=== PATIENT | male | born 1975 | race Caucasian/White ===

== ENCOUNTER → 2016-07-21 | Day surgery (SDC) | payer OTHER ==
[~2016-07-21] VITALS: Ht 177.8 cm; Wt 81.6 kg
[~2016-07-21] MED LIST: Dexamethasone Inj PF*Surgery use* 10 MG/ML VIAL IV ONE; NKM
[2016-07-21 09:33] VITALS: BP 147/80
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
--- NOTE | 2016-07-21 10:10 | Pre-Procedure Note/Attestation ---
Pre-Procedure Note/Attestation Complete Prior to Procedure Planned Procedure: bilateral Procedure Narrative: L5-S1 transforaminal lumbar epidural steroid injection. Indications for Procedure Pre-Operative Diagnosis: lumbar disc displacement with radiculopathy Attestation I attest that I discussed the nature of the procedure; its benefits; risks and complications; and alternatives (and the risks and benefits of such alternatives ), prior to the procedure, with the patient (or the patient's legal veterans service representative). I attest that, if there was a reasonable possibility of needing a blood transfusion, the patient (or the patient's legal veterans service representative) was given the [facility] of Health Services standardized written summary, pursuant to the Dada Romain Blood Safety Act ([place] Health and Safety Code # 1645, as amended). I attest that I re-evaluated the patient just prior to the surgery and that there has been no change in the patient's H&P, except as documented below: NAILA HERNANDEZ M.D. Jul 21, 2016 10:10
--- NOTE | 2016-07-21 10:33 | Brief Operative Note ---
Immediate Post Operative Note Operative Note Chief Complaint: lower back pain and bilateral leg pain Pre-op Diagnosis: lumbar disc displacement with radiculopathy Procedure: Bilateral L5-S1 transforaminal lumbar epidural steroid injection under fluoroscopic guidance. Post-op Diagnosis: lumbar disc displacement with radiculopathy Post-op Diagnosis: same as pre-op Findings: consistent w/pre-op dx studies Surgeon: Naila Aguirre MD Cad Programmer: None Additional Surgeons: None Anesthesiologist: Arleen Anesthesia: local Specimen: none Complications: none Condition: stable Fluids: None Estimated Blood Loss: none Drains: none Packing: None Tourniquet time: 0 - min Implant(s) used?: NAILA Bloom M.D. Jul 21, 2016 10:33
--- NOTE | 2016-07-21 10:36 | Discharge Summary ---
Discharge Summary Hospital Course Date of Admission 07/21/2016 Date of Discharge 07/21/2016 Admitting Diagnosis lumbar disc displacement with radiculopathy Reason for Hospitalization: short stay HPI Shahriar Byrnes is a 41 year old male who was admitted on for Back Pain Consultations none Procedures Bilateral L5-S1 transforaminal lumbar epidural steroid injection under fluoroscopic guidance. Hospital Course short stay Discharge Condition Upon Discharge: stable Discharge Disposition Patient was discharged to home. Discharge Diagnoses: (1) Lumbar disc herniation with radiculopathy Discharge Instructions Discharge Instructions Follow up with: Naila Hernandez MD Diet: regular Activity: okay to shower For Surgical Patients Contact your physician for: bleeding, pain, tenderness, redness, swelling, yellowish discharge in the op. site NAILA HERNANDEZ M.D. Jul 21, 2016 10:36
[2016-07-21 10:37] VITALS: BP 114/88
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
== END | disposition home or self-care (01) ==
LOC: SUR 09:04 → RAD 09:04
DX: M51.16 Intervertebral disc disorders with radiculopathy, lumbar region (principal)
CPT/HCPCS: 64483; 64484

== ENCOUNTER 2017-05-10 12:47 | Emergency (ER) | payer OTHER ==
[~2017-05-10] VITALS: Ht 177.8 cm; Wt 88.9 kg
[~2017-05-10 12:47] MED LIST changes: -Dexamethasone Inj PF*Surgery use* 10 MG/ML VIAL IV ONE
[2017-05-10 13:00] VITALS: BP 162/97
--- NOTE | 2017-05-10 13:13 | Emergency Room Report ---
History of Present Illness General Chief Complaint: Lower Back Pain or Injury Source: Patient Present Illness HPI Patient is a 42-year-old man with a history of chronic back pain who presents today with complaints of back pain. He states the pain is worse on the left side and radiates down his left leg. He and his been taking Motrin with some relief. He denies any changes in Mejia bladder habits, numbness, tingling, loss of sensation. In he denies saddle anesthesia. He has no significant medical problems and denies tobacco, alcohol or drug use. Allergies: Coded Allergies: NO KNOWN ALLERGIES (Verified Allergy, Unknown, 07/21/16) Patient History Reviewed Nursing Documentation: PMH: Agreed, PSxH: Agreed Nursing Documentation-PMH Past Medical History: No Stated History Hx Cardiac Problems: No Hx Cancer: No Hx Gastrointestinal Problems: No Hx Neurological Problems: No Review of Systems Musculoskeletal: Reports: back pain All Other Systems: negative except mentioned in HPI Physical Exam Vital Signs Date Time Temp Pulse Resp B/P (MAP) Pulse Ox O2 Delivery O2 Flow Rate FiO2 05/10/17 12:54 97.3 77 18 162/97 98 Room Air Sp02 EP Interpretation: reviewed, normal General Appearance: no apparent distress, alert, GCS 15, non-toxic Head: normocephalic, atraumatic Eyes: bilateral eye normal inspection, bilateral eye PERRL ENT: hearing grossly normal, normal pharynx, no angioedema, normal voice Neck: full range of motion, supple/symm/no masses Respiratory: chest non-tender, lungs clear, normal breath sounds, speaking full sentences Cardiovascular #1: regular rate, rhythm, no edema Cardiovascular #2: 2+ carotid (R), 2+ carotid (L), 2+ radial (R), 2+ radial (L) , 2+ dorsalis pedis (R), 2+ dorsalis pedis (L) Gastrointestinal: normal bowel sounds, non tender, soft, non-distended, no guarding, no rebound Rectal: deferred Genitourinary: normal inspection, no CVA tenderness Musculoskeletal: back normal, gait/station normal, normal range of motion, non- tender, other - no midline tenderness, TTP over the musuclar areas of the low back Neurologic: alert, oriented x3, responsive, motor strength/tone normal, sensory intact, speech normal Psychiatric: judgement/insight normal, memory normal, mood/affect normal, no suicidal/homicidal ideation Reflexes: 3+ bicep (R), 3+ bicep (L), 3+ tricep (R), 3+ tricep (L), 3+ knee (R) , 3+ knee (L) Skin: normal color, no rash, warm/dry, well hydrated, other - no overlying skin changes Lymphatic: no adenopathy Medical Decision Making PA Attestation Supervising physician is Dr. Membreno Diagnostic Impression: Primary Impression: Left sided sciatica ER Course Low index of suspicion for cauda equina as the patient has no neurologic involvement. Patient has chronic back pain and symptoms consistent with left- sided sciatica. He patient's given Decadron Toradol and ED with improvement of symptoms on reevaluation. Patient is discharged home with Toradol and instructed to followup with PCP for further evaluation and management. Patient understands and is agreeable to plan. Last Vital Signs Date Time Temp Pulse Resp B/P (MAP) Pulse Ox O2 Delivery O2 Flow Rate FiO2 05/10/17 12:54 97.3 77 18 162/97 98 Room Air Status: improved Condition: Stable Scripts Tramadol Hcl (ULTRAM*) 50 Mg Tablet 50 MG ORAL Q4H, #30 TAB 0 Refills Prov: Deepali Rodriguez 05/10/17 Patient Instructions: Low Back Sprain With Rehab-Sports[facility], Back Pain, Adult Deepali Rodriguez May 10, 2017 13:13
[2017-05-10] MEDS ORDERED: Dexamethasone 20mg/5ml IM ONE (13:15)
[2017-05-10] MEDS ORDERED: Ketorolac 60mg Inj IM ONE (13:15)
[2017-05-10] MEDS ORDERED: ULTRAM50 MG ORAL (13:25)
[2017-05-10 14:10] VITALS: BP 158/89
== END 2017-05-10 14:15 | disposition home or self-care (01) ==
LOC: EMR 13:24
DX: M54.42 Lumbago with sciatica, left side (principal)
CPT/HCPCS: 96372; 99283; J1100

== ENCOUNTER 2017-06-08 06:58 | Inpatient (IN) | payer OTHER ==
[2017-06-08] VITALS (18 sets, daily range): BP systolic 113–153; BP diastolic 51–99
[~2017-06-08] VITALS: Ht 177.8 cm; Wt 86.2 kg
[~2017-06-08 06:58] MED LIST changes: +ULTRAM50 MG ORAL
[2017-06-08] MEDS ORDERED: ceFAZolin sod 2 GM in D5W 110 ML IVPB ONE (07:00)
--- NOTE | 2017-06-08 07:20 | Pre-Procedure Note/Attestation ---
Pre-Procedure Note/Attestation Complete Prior to Procedure Planned Procedure: not applicable Procedure Narrative: Cervical 56 Artificial disc replacement, Cervical 67 Anterior cervical discectomy and fusion Indications for Procedure Pre-Operative Diagnosis: Herniation C56,67 Attestation I attest that I discussed the nature of the procedure; its benefits; risks and complications; and alternatives (and the risks and benefits of such alternatives ), prior to the procedure, with the patient (or the patient's legal assistance representative). I attest that, if there was a reasonable possibility of needing a blood transfusion, the patient (or the patient's legal assistance representative) was given the [facility] of [facility] Services standardized written summary, pursuant to the Dada Edroy Blood Safety Act ([place] Health and Safety Code # 1645, as amended). I attest that I re-evaluated the patient just prior to the surgery and that there has been no change in the patient's H&P, except as documented below: MIKE ROCK Jun 08, 2017 07:20
--- NOTE | 2017-06-08 07:21 | Brief Operative Note ---
Immediate Post Operative Note Operative Note Chief Complaint: neck pain and radiculopathy Pre-op Diagnosis: Herniation C56,67 Procedure: Cervical 56 Artificial disc replacement, Cervical 67 Anterior cervical discectomy and fusion Post-op Diagnosis: same Post-op Diagnosis: same as pre-op Findings: consistent w/pre-op dx studies Surgeon: Evelina Lawn Service Manager: Everette Anesthesiologist: YEE Anesthesia: general Specimen: none Complications: none Condition: stable Estimated Blood Loss: minimal Drains: none Implant(s) used?: Yes - Prodisc C sz 5, Peek nuvasive sz 6 , osteocell MIKE ROCK Jun 08, 2017 07:21
[2017-06-08] MEDS ORDERED: Thrombin 5000 units TOPIC ONE (09:45)
[2017-06-08] MEDS ORDERED: Bacitracin 50000 Units Vial ONE (09:46)
[2017-06-08] MEDS ORDERED: Vancomycin 1gm inj IVPB ONE (09:46)
[2017-06-08] MEDS ORDERED: Bupivacaine 0.5% Inj 30 ml vial INJ ONE (09:47)
[2017-06-08] MEDS ORDERED: Surgicel 4in x 8in TOPIC ONE (09:49)
[2017-06-08] MEDS ORDERED: Glycopyrrolate 0.2mg/ml 1ml Vial ONE (10:30)
[2017-06-08] MEDS ORDERED: Nimbex 2mg/ml Inj 10ML IVP ONE (10:30)
[2017-06-08] MEDS ORDERED: NS Irrig 1000ml ONE (10:30)
[2017-06-08] MEDS ORDERED: fentaNYL 100 mcg/2 mL IV ONE (10:30)
[2017-06-08] MEDS ORDERED: Neostigmine 1mg/ml 10ml Inj ONE (10:30)
[2017-06-08] MEDS ORDERED: LR 1000ml ONE (10:30)
[2017-06-08] MEDS ORDERED: Sterile Water Irrig 1000ml IRRIG ONE (10:30)
[2017-06-08] MEDS ORDERED: Succinylcholine 20mg/ml 10ml vial ONE (10:30)
[2017-06-08] MEDS ORDERED: Ketorolac 30mg Inj ONE (10:30)
[2017-06-08] MEDS ORDERED: Propofol 1,000mg/ 100ml btl IV ONE (10:30)
[2017-06-08] MEDS ORDERED: Midazolam 2mg/2ml Inj ONE (10:30)
[2017-06-08] MEDS ORDERED: Morphine Sulfate 10mg/ml Inj ONE (10:30)
[2017-06-08] MEDS ORDERED: LR 1000ml 1,000 ML IVLG SCH (11:47)
--- NOTE | 2017-06-08 11:47 | Anethesia Preoperative Eval ---
Anesthesia Pre-op PMH/ROS General Date of Evaluation: Jun 08, 2017 Time of Evaluation: 10:15 Anesthesiologist: Mukesh ASA Score: ASA 2 Mallampati Score Class I : Soft palate, uvula, fauces, pillars visible Class II: Soft palate, uvula, fauces visible Class III: Soft palate, base of uvula visible Class IV: Only hard plate visible Mallampati Classification: Class II Surgeon: Luciano Diagnosis: Cervical radiculopathy Surgical Procedure: ACDF C5-C7 Anesthesia History: none Family History: no anesthesia problems Allergies: Coded Allergies: NO KNOWN ALLERGIES (Verified Allergy, Unknown, 06/08/17) Medications: see eMAR Past Medical History Cardiovascular: Denies: HTN, CAD, NE, valve dz, arrhythmia, other Pulmonary: Denies: asthma, COPD, NEENA, other Gastrointestinal/Genitourinary: Reports: GERD - mild, Denies: CRI, ESRD, other Neurologic/Psychiatric: Denies: dementia, CVA, depression/anxiety, TIA, other Endocrine: Denies: DM, hypothyroidism, steroids, other HEENT: Denies: cataract (L), cataract (R), glaucoma, PICAYUNE (L), PICAYUNE (R), other Hematology/Immune: Denies: anemia, DVT, bleeding disorder, other Musculoskeletal/Integumentary: Denies: OA, RA, DJD, DDD, edema, other PMH Narrative: as above PSxH Narrative: Appendectomy, septoplasty Anesthesia Pre-op Phys. Exam Physician Exam Last Vital Signs Date Time Temp Pulse Resp B/P (MAP) Pulse Ox O2 Delivery O2 Flow Rate FiO2 06/08/17 07:28 97.9 71 18 125/92 98 Room Air Constitutional: NAD Neurologic: CN 2-12 intact Cardiovascular: RRR, no M/R/G Respiratory: CTA Gastrointestinal: S/NT/ND Airway Exam Mallampati Score: Class II MO: full Neck: stiff ROM: full Teeth: intact Dentures: no upper, no lower Anesthesia Pre-op A/P Labs see chart Studies Pre-op Studies: EKG - NSR, CXR - WNL, echo - EF 60% Risk Assessment & Plan Assessment: ASA 2 Plan: GA with ETT neuromonitoring Status Change Before Surgery: No Pre-Antibiotics Drug: Ancef 2gr. Given Within 1 Hr of Incision: Yes Time Given: 10:57 BRYAN SANTOS M.D. Jun 08, 2017 11:47
[2017-06-08] MEDS ORDERED: DiphenhydrAMINE 50mg/ml Inj IVP PRN (12:00)
[2017-06-08] MEDS ORDERED: Hydromorphone 0.5mg/0.5ml inj IVP PRN ×2 (12:00→15:00)
[2017-06-08] MEDS ORDERED: Ketorolac 30mg Inj IV PRN (12:00)
[2017-06-08] MEDS ORDERED: Midazolam 2mg/2ml Inj IVP PRN (12:00)
[2017-06-08] MEDS ORDERED: Meperidine 50mg/ml Inj(FOR RIGORS ONLY) IV PRN (12:00)
--- NOTE | 2017-06-08 13:19 | Immediate Post-Op Evaluation ---
Immediate Post-Op Evalulation Immediate Post-Op Evalulation Procedure: ACDF C5-C6-C7 Date of Evaluation: Jun 08, 2017 Time of Evaluation: 13:17 IV Fluids: 1200 Blood Products: none Estimated Blood Loss: 50 Urinary Output: 150 Blood Pressure Systolic: 123 Blood Pressure Diastolic: 61 Pulse Rate: 77 Respiratory Rate: 20 O2 Sat by Pulse Oximetry: 99 Temperature (Fahrenheit): 98.1 Pain Score (1-10): 2 Nausea: No Vomiting: No Complications none Patient Status: reacts, patent, extubated, none Hydration Status: adequate BRYAN SANTOS M.D. Jun 08, 2017 13:18
[2017-06-08] MEDS ORDERED: Milk of Magnesia 30ml Ud ORAL PRN (15:00)
[2017-06-08] MEDS ORDERED: Hydromorphone 0.5mg/0.5ml inj SUBQ PRN (15:00)
[2017-06-08] MEDS ORDERED: Norco 5mg/325mg tab ORAL PRN (15:00)
[2017-06-08] MEDS ORDERED: Naloxone 0.4mg/ml Inj IVP PRN (15:00)
[2017-06-08] MEDS ORDERED: Norco 7.5mg/325mg tab ORAL PRN ×2 (15:00)
[2017-06-08] MEDS ORDERED: Metoclopramide 10mg/2ml Inj IVP PRN (15:00)
[2017-06-08] MEDS ORDERED: Chloraseptic Spray 20mL Bottle ORAL PRN (15:00)
--- NOTE | 2017-06-08 15:22 | Diagnostic Imaging Report ---
Indication: Bilateral upper extremity pain, intraoperative Technique: Digital intraoperative images Comparison: none Findings: Intraoperative images demonstrate surgical tool projecting at the anterior aspect of the C5-6 disc. Subsequent images document placement of a disc prosthesis at C5-6 and anterior fusion at C6-7. Impression: Intraoperative imaging, as described
[2017-06-08] MEDS: NS w/KCl 20mEq 1,000 ML IV SCH (16:14)
[2017-06-08] MEDS: Dexamethasone 4mg/ml vial IVP SCH (17:58)
[2017-06-08] MEDS: Docusate 100mg cap ORAL SCH (17:58)
[2017-06-08] MEDS: ceFAZolin sod 1 GM in D5W 55 ML IV SCH (18:14)
[2017-06-09] VITALS: BP 108/70
[2017-06-09] MEDS: Dexamethasone 4mg/ml vial IVP SCH ×3 (00:05→12:31)
[2017-06-09] MEDS: ceFAZolin sod 1 GM in D5W 55 ML IV SCH ×2 (01:36→10:55)
[2017-06-09] MEDS: NS w/KCl 20mEq 1,000 ML IV SCH ×2 (01:36→12:31)
[2017-06-09 08:00] VITALS: BP 143/90
[2017-06-09] MEDS: Docusate 100mg cap ORAL SCH (08:54)
[2017-06-09 12:00] VITALS: BP 125/81
[2017-06-09] MEDS ORDERED: Tubing IV Secondary IV ONE (13:29)
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
--- NOTE | 2017-06-14 13:04 | Discharge Summary ---
Discharge Summary Hospital Course Date of Admission Jun 08, 2017 at 06:58 Date of Discharge Jun 09, 2017 at 13:30 Admitting Diagnosis cervical herniated disc Reason for Hospitalization: elective surgery HPI Shahriar Byrnes is a 42 year old male who was admitted on Jun 08, 2017 at 06: 58 for Cervical Herniated Disc and elective surgery Procedures s/p 06/08/[address]oyt 1. Anterior cervical discectomy and artificial disc replacement of C5-C6 using a Synthes ProDisc-C 5 height. 2. C6-C7 anterior cervical discectomy and fusion using Nuvasive Interlock-C cage with 1 mL Osteocel and a total of three 14-mm screws. 3. Use of intraoperative microscope. 4. Motor evoked potential monitoring. 5. Somatosensory evoked potential monitoring. 6. Supervision and interpretation of fluoroscopy. Hospital Course s/p surgery course of recovery uneventful neurovascular intact pain management addressed, pain controlled dressing C/D/I tolerated soft diet, a/emetic prn, lozenges prn for comfort worked with PT, ambulated voided freely stable fro dc home and f/up as outpt with surgeon as advised FINAL DIAGNOSES 1. Intractable neck pain. 2. Radiculopathy. 3. Herniation, C5-C6, C6-C7. 4. Neural foraminal stenosis, C5-C6, C6-C7. 5. Stenosis. 6. s/p ACDF C5-C6-C7 Discharge Condition Upon Discharge: stable Discharge Disposition Patient was discharged to Home (01) Discharge Diagnoses: Discharge Instructions Discharge Instructions Special Instructions I have been assigned to complete a D/C Summary on this account. I was not involved in the patient management Ángela Renteria NP (Vanchtein) Jun 14, 2017 13:04
== END 2017-06-09 13:30 | disposition home or self-care (01) | DRG 473 ==
LOC: SDSOVERFLO 06:58 → 3E 16:43
PROC: 4A11X4G Monitoring of Peripheral Nervous Electrical Activity, Intraoperative, External Approach (ICD-10-PCS; principal; 2017-06-08 09:30)
PROC: 0RG10A0 Fusion of Cervical Vertebral Joint with Interbody Fusion Device, Anterior Approach, Anterior Column, Open Approach (ICD-10-PCS; principal; 2017-06-08 09:30)
PROC: 0RR30JZ Replacement of Cervical Vertebral Disc with Synthetic Substitute, Open Approach (ICD-10-PCS; principal; 2017-06-08 09:30)
DX: M50.123 Cervical disc disorder at C6-C7 level with radiculopathy (principal); M48.02 Spinal stenosis, cervical region
CPT/HCPCS: 36415; 72040; 76001; 86850; 86900; 86901; 87081; 94003; 94150; J2250; J2405; J2710

== ENCOUNTER 2018-05-15 07:04 | Inpatient (IN) | payer OTHER ==
--- NOTE | 2018-05-14 11:21 | Pre-Procedure Note/Attestation ---
Pre-Procedure Note/Attestation Complete Prior to Procedure Planned Procedure: not applicable Procedure Narrative: Stage 1 : Anterior lumbar interbody fusion of Lumbar 5-S1 with bone morphogenetic protein and allograft Stage 2: Left sided Microdiscectomy of Lumbar 4-5, and Fong laminectomy pedicle screw fixation of Lumbar 5-S1 Indications for Procedure Pre-Operative Diagnosis: Left sided herniation of L45 and L5S1 herniation Attestation I attest that I discussed the nature of the procedure; its benefits; risks and complications; and alternatives (and the risks and benefits of such alternatives ), prior to the procedure, with the patient (or the patient's legal cash applications representative). I attest that, if there was a reasonable possibility of needing a blood transfusion, the patient (or the patient's legal cash applications representative) was given the [place] Department [employer] standardized written summary, pursuant to the [place] Blood Safety Act ([place] Health and Safety Code # 1645, as amended). I attest that I re-evaluated the patient just prior to the surgery and that there has been no change in the patient's H&P, except as documented below: Daniel Hoyt MD May 14, 2018 11:21
--- NOTE | 2018-05-14 11:23 | Brief Operative Note ---
Immediate Post Operative Note Operative Note Chief Complaint: intractable back and leg pain Pre-op Diagnosis: Left sided herniation of L45 and L5S1 herniation Procedure: Stage 1 : Anterior lumbar interbody fusion of Lumbar 5-S1 with bone morphogenetic protein and allograft Stage 2: Left sided Microdiscectomy of Lumbar 4-5, and Fong laminectomy pedicle screw fixation of Lumbar 5-S1 Post-op Diagnosis: same as pre-op Findings: consistent w/pre-op dx studies Surgeon: Evelina Chemical Operator: Marjorie Additional Surgeons: Everette Anesthesia: general Specimen: none Complications: none Condition: stable Fluids: IVF Estimated Blood Loss: minimal Implant(s) used?: Yes - Nuvasive brelie, synthes screws x4 Daniel Hoyt MD May 14, 2018 11:23
[~2018-05-15] VITALS: Ht 177.8 cm; Wt 87.7 kg
[2018-05-15] VITALS (11 sets, daily range): BP systolic 106–125; BP diastolic 65–78
[~2018-05-15 07:04] MED LIST changes: +Chloraseptic Spray 20mL Bottle ORAL PRN; +Dexamethasone 4mg/ml vial IVP SCH; +Docusate 100mg cap ORAL SCH; +HYDROmorphone 1mg/ml Carpuject IVP PRN; +Milk of Magnesia 30ml Ud ORAL PRN; +Morphine Sulfate 2mg/ml Inj IV PRN; +Morphine Sulfate 4mg/ml Inj (IV/IM USE ONLY) IV PRN; +NS w/KCl 20mEq 1,000 ML IV SCH; +Naloxone 0.4mg/ml Inj IVP PRN; +Norco 5mg/325mg tab ORAL PRN; +ceFAZolin sod 2 GM in D5W 110 ML IV ONE
[2018-05-15] MEDS ORDERED: Gelfoam Absorbable 1gm powder pkt TOPIC ONE (08:00)
[2018-05-15] MEDS ORDERED: Propofol 1,000mg/ 100ml btl IV ONE (08:00)
[2018-05-15] MEDS ORDERED: Midazolam 2mg/2ml Inj ONE (08:45)
[2018-05-15] MEDS ORDERED: fentaNYL 100 mcg/2 mL IV ONE ×2 (08:45→15:44)
[2018-05-15] MEDS ORDERED: Vancomycin 1gm inj IVPB ONE (09:51)
[2018-05-15] MEDS ORDERED: Gelfoam Size TOPIC ONE ×2 (09:51→09:52)
[2018-05-15] MEDS ORDERED: Thrombin 5000 units TOPIC ONE ×2 (09:51→11:31)
[2018-05-15] MEDS ORDERED: Bupivacaine w/Epi 0.5% 30ml Vial INJ ONE ×2 (09:52→10:32)
[2018-05-15] MEDS ORDERED: Bacitracin 50000 Units Vial ONE (09:52)
--- NOTE | 2018-05-15 10:15 | Consultation ---
DATE OF CONSULTATION: 05/15/2018 VASCULAR SURGERY CONSULTATION CONSULTING PHYSICIAN: Chito Amador M.D. HISTORY OF PRESENT ILLNESS: The patient is a 43-year-old male, who was admitted to undergo anterior lumbar interbody fusion of L5-S1 as determined by his spine surgeon, Dr. Daniel Hoyt. Typically, the patient would have received at his home my separate informed consent form, but I was called to perform this approach late yesterday afternoon and so again as my usual protocol, I was unable to telephone the patient to discuss the procedure in my typical protocol. However, again as my usual protocol, the patient was seen in the preoperative holding area where he was given my separate informed consent form, which introduced me and explained my role in the approach for the anterior lumbar spine surgery. It also outlined the possible risks and complications including, but not limited to hemorrhage, need for blood transfusions, retrograde ejaculation, wound infection, bowel or ureter injury, arterial or venous injury or thrombosis, and the remote chance of , etc. The patient reviewed the form and any questions were answered. He was shown the site of the incision. He had palpable bilateral strong posterior tibial and then dorsalis pedis pulses. He was 5 feet 10 inches tall, weighing approximately 194 pounds, giving him a BMI of 28. His hematocrit was 42 with a platelet count of 212,000. His INR was 1.08 with a PTT of 31 seconds. That consent was signed with a nurse witnessed and signature as well and then placed into the chart. He fully understood and wished to proceed. There were no contraindications and we would proceed with the proposed operation. Chito Amador M.D. DR: TAMAR JOB#: [id number] CC:
[2018-05-15] MEDS ORDERED: Zemuron 50mg/5ml Inj IV ONE ×2 (10:32→11:25)
[2018-05-15] MEDS ORDERED: Heparin 5000 units/ml inj ONE (10:32)
[2018-05-15] MEDS ORDERED: NS Irrig 1000ml IRRIG ONE (11:30)
--- NOTE | 2018-05-15 11:35 | Anethesia Preoperative Eval ---
Anesthesia Pre-op PMH/ROS General Date of Evaluation: May 15, 2018 Time of Evaluation: 10:20 Anesthesiologist: Mukesh ASA Score: ASA 2 Mallampati Score Class I : Soft palate, uvula, fauces, pillars visible Class II: Soft palate, uvula, fauces visible Class III: Soft palate, base of uvula visible Class IV: Only hard plate visible Mallampati Classification: Class II Surgeon: Evelina Diagnosis: Lumbar radiculopathy Surgical Procedure: ALIF L5-S1, posterior interbody fusion Anesthesia History: none Family History: no anesthesia problems Allergies: Coded Allergies: NO KNOWN ALLERGIES (Verified Allergy, Unknown, 05/15/18) Patient NPO?: Yes NPO Date: May 14, 2018 NPO Time: 2100 Past Medical History Cardiovascular: Denies: HTN, CAD, CO, valve dz, arrhythmia, other Pulmonary: Denies: asthma, COPD, NEENA, other Gastrointestinal/Genitourinary: Reports: GERD - mild; Denies: CRI, ESRD, other Neurologic/Psychiatric: Reports: other - chronic pain; Denies: dementia, CVA, depression/anxiety, TIA Endocrine: Denies: DM, hypothyroidism, steroids, other HEENT: Denies: cataract (L), cataract (R), glaucoma, ASA'CARSARMIUT (L), ASA'CARSARMIUT (R), other Hematology/Immune: Denies: anemia, DVT, bleeding disorder, other Musculoskeletal/Integumentary: Denies: OA, RA, DJD, DDD, edema, other PMH Narrative: as above PSxH Narrative: ACDF Anesthesia Pre-op Phys. Exam Physician Exam Last Vital Signs Date Time Temp Pulse Resp B/P (MAP) Pulse Ox O2 Delivery O2 Flow Rate FiO2 05/15/18 07:39 98.0 65 18 110/67 (81) 98 05/15/18 07:35 Room Air Constitutional: NAD Neurologic: CN 2-12 intact Cardiovascular: RRR, no M/R/G Respiratory: CTA Gastrointestinal: S/NT/ND Airway Exam Mallampati Score: Class II MO: full Neck: flexible ROM: full Teeth: intact Dentures: no upper, no lower Anesthesia Pre-op A/P Labs see chart Studies Pre-op Studies: EKG - NSR Risk Assessment & Plan Assessment: ASA 2 Plan: GA with ETT neuromonitoring Status Change Before Surgery: No Pre-Antibiotics Drug: Ancef 2gr. Given Within 1 Hr of Incision: Yes Time Given: 11:08 Rod Mayorga MD May 15, 2018 11:35
[2018-05-15] MEDS ORDERED: LR 1000ml 1,000 ML IVLG SCH (11:36)
[2018-05-15] MEDS ORDERED: DiphenhydrAMINE 50mg/ml Inj IVP PRN ×2 (11:45→18:15)
[2018-05-15] MEDS ORDERED: Meperidine 50mg/ml Inj(FOR RIGORS ONLY) IV PRN ×2 (11:45→18:15)
[2018-05-15] MEDS ORDERED: fentaNYL 100 mcg/2 mL IV PRN ×2 (11:45→18:15)
[2018-05-15] MEDS ORDERED: Ketorolac 30mg Inj IV PRN ×2 (11:45→18:15)
[2018-05-15] MEDS ORDERED: Acetaminophen (Non formulary) 100 ML IV SCH (12:00)
[2018-05-15] MEDS ORDERED: Morphine Sulfate 10mg/ml Inj ONE (12:06)
[2018-05-15] MEDS ORDERED: Sodium Chloride 10ml vial INJ ONE (12:07)
[2018-05-15] MEDS ORDERED: Neostigmine 1mg/ml 10ml Inj ONE (12:07)
[2018-05-15] MEDS ORDERED: Ketorolac 30mg Inj ONE (12:07)
[2018-05-15] MEDS ORDERED: Glycopyrrolate 0.2mg/ml 1ml Vial ONE (12:07)
[2018-05-15] MEDS ORDERED: Propofol 200mg/20ml IV ONE ×2 (15:39→15:45)
--- NOTE | 2018-05-15 17:21 | Immediate Post-Op Evaluation ---
Immediate Post-Op Evalulation Immediate Post-Op Evalulation Procedure: Anterior and posterior L5-S1 interbody fusion with laminotomy and decompres Date of Evaluation: May 15, 2018 Time of Evaluation: 17:19 IV Fluids: 1800 Blood Products: none Estimated Blood Loss: 200 Urinary Output: 350 Blood Pressure Systolic: 106 Blood Pressure Diastolic: 68 Pulse Rate: 78 Respiratory Rate: 20 O2 Sat by Pulse Oximetry: 99 Temperature (Fahrenheit): 98.6 Pain Score (1-10): 1 Nausea: No Vomiting: No Complications none Patient Status: reacts, patent, extubated Hydration Status: adequate Rod Mayorga MD May 15, 2018 17:21
--- NOTE | 2018-05-15 18:45 | Operative Note - Dictated ---
DATE OF OPERATION: 05/15/2018 SURGEON: Chito Amador M.D. INDICATIONS FOR PROCEDURE: The patient is a 43-year-old male, who was admitted to undergo anterior lumbar interbody fusion at L5-S1 as determined by his spine surgeon, Dr. Daniel Hoyt. Typically, the patient received at his home my separate informed consent form, but I was scheduled to do this approach yesterday afternoon. Typically as my usual protocol, I would have telephoned the patient as well, however, again as my usual protocol, the patient was seen in the preoperative holding area where he was given my separate informed consent form, which introduced me and explained my role in the approach for the anterior lumbar spine surgery. It also outlined the possible risks and complications including but not limited to hemorrhage, need for blood transfusions, retrograde ejaculation, wound infection, bowel or ureter injury, arterial or venous injury or thrombosis, and the remote chance of , etc. The patient reviewed the consent and all questions were answered. He was shown the site of the incision. He had palpable stronger bilateral posterior tibial and also dorsalis pedis pulses. He was 5 feet 10 inches tall, weighing approximately 194 pounds giving him a BMI of 28. That consent was signed once again with a nurse witness and signature as well and then placed into the chart. He fully understood and wished to proceed. A preoperative vascular surgery consultation report was dictated. DESCRIPTION OF PROCEDURE: The patient was taken into the operating room and placed in supine position. Using an endotracheal tube, he was placed under general anesthesia without difficulty. His abdomen was prepped and draped in usual sterile manner. An appropriate time-out was obtained. A transverse incision was made in the left lower quadrant from the midline and carried down through the subcutaneous tissue down to the rectus fascia. Hemostasis was achieved using electrocautery. The rectus fascia was incised transversely and elevated off the anterior surface of the muscle for a distance of approximately 4 cm, both caudad and cephalad. This would allow for retraction of the rectus muscle laterally later in the case noted to obtain direct anterior-posterior approach to the anterior surface of the spine. The inferior epigastric vessels were identified and preserved. Laterally, the retroperitoneal space was entered down to the left psoas muscle. The left ureter was identified and protected as it was mobilized with the peritoneum more medially until the left iliac artery was identified. Deep self-retaining retractors such as the Richland and Bookwalter were utilized to hold the abdominal wall and peritoneal contents in place while further dissection was carried out. Careful blunt dissection was carried out below the bifurcation of the iliac vessels with several medial branches of the iliac vein were taken between hemoclips and transected. The middle sacral artery was taken between hemoclips and transected. Careful blunt dissection was carried out to preserve the sympathetic chains laterally as well as the parasympathetic plexus which lies anteriorly along the surface of the fifth lumbar vertebra. Further careful blunt dissection was utilized to expose the anterior surface of the multiple vertebral bodies and intervening disk space. Several retractor blades were now placed in all quadrants with the rectus muscle now retracted laterally, which allowed exposure and direct anterior-posterior approach to the anterior surface of the spine. A needle was inserted into the appropriate disk space and an x-ray was taken to verify the exposure. The spine surgeon then proceeded to perform diskectomy and fusion which would be dictated in a separate report by the spine surgeon, Dr. Hoyt. Antibiotic irrigation had been carried out. The retractor blades were removed. The integrity of the iliac vessels was then checked to make sure that there was no tear or thrombosis of the vein and that there was adequate flow through the artery with no evidence of spasm or thrombosis. A further check for hemostasis was made and the integrity of the ureter was verified. The peritoneum was allowed to return to its anatomical location and then the anterior rectus sheath approximated using continuous running suture of #1 Vicryl. The subcutaneous tissues were irrigated using dilute Betadine solution as well as antibiotic solution. Hemostasis noted to be achieved. Plastic closure repair of the abdominal wound was continued using 2-0 Vicryl followed by skin approximation using continuous subcuticular suture of 3-0 Monocryl. Steri-Strips were applied. Dry sterile gauze, OpSite dressings were applied. The sponge, pad, needle, and instrument counts reported as correct. ESTIMATED BLOOD LOSS: 50 mL. COMPLICATIONS: There were no complications during this part of the procedure. At completion of this part of the procedure, the patient had maintenance of his palpable bilateral posterior tibial and dorsalis pedis pulses and the pulse oximeter registered 100% on the left foot. The patient will remain in the operating room and undergo posterior instrumentation by the spine surgeon. Chito Amador M.D. DR: Kirstin JOB#: [id number] CC:
[2018-05-15] MEDS: NS w/KCl 20mEq 1,000 ML IV SCH (21:04)
[2018-05-15] MEDS: Dexamethasone 4mg/ml vial IVP SCH (21:05)
[2018-05-15] MEDS: Docusate 100mg cap ORAL SCH (21:05)
[2018-05-15] MEDS: Morphine Sulfate 4mg/ml Inj (IV/IM USE ONLY) IV PRN (21:10)
--- NOTE | 2018-05-15 21:30 | Operative Note - Dictated ---
DATE OF OPERATION: 05/15/2018 Stage 1 of 2. SURGEON: Daniel Hoyt M.D., Orthopaedic Spine Surgeon. EXPOSURE SURGEON: Chito Amador M.D. INTERNAL COMMUNICATIONS WRITER SURGEON: Aguilar Gaviria M.D. ANESTHESIA: General endotracheal anesthesia. PREOPERATIVE DIAGNOSES: 1. Intractable back pain. 2. Intractable leg pain. 3. Worsening radiculopathy. 4. Weakness. 5. Herniated nucleus pulposus, L5-S1 herniation. 6. Neural foraminal stenosis, L5-S1 herniation. POSTOPERATIVE DIAGNOSES: 1. Intractable back pain. 2. Intractable leg pain. 3. Worsening radiculopathy. 4. Weakness. 5. Herniated nucleus pulposus, L5-S1 herniation. 6. Neural foraminal stenosis, L5-S1 herniation. PROCEDURES PERFORMED: 1. Radical anterior lumbar intervertebral L5-S1 discectomy. 2. Anterior lumbar interbody fusion using NuVasive Brigade PEEK cage size #14 mm 8-degree and bone morphogenetic protein with Mariposa allograft bone. 3. Anterior lumbar plating and fixation at L5-S1 using #4 screws of 25 mm length each. 4. Anterior retroperitoneal exposure. 5. Supervision and interpretation of intraoperative fluoroscopy. 6. Supervision and interpretation of somatosensory-evoked potential and free running EMG monitoring. ESTIMATED BLOOD LOSS: 100 mL. COMPLICATIONS: None. INDICATIONS FOR THE PROCEDURE: The patient is a 43-year-old male who presents for intractable back pain and radiculopathy which is well documented in our clinical chart and records. We had a long discussion with Shahriar regarding definitive surgical treatment options. We had a long discussion with the patient regarding the risks, alternatives, and benefits of procedure. Our description of the risks included a discussion in person as well as a signed consent which detailed all pertinent risks and the procedure itself. Briefly, our discussion included but was not limited to infection, bleeding, pseudarthrosis, spinal cord injury, neurovascular injury, dural tear, CSF leak, neuropathy, paralysis, permanent weakness/drop foot, paresthesias, blindness, palsy, and weakness. The patient understood there may be a need for revision surgery or additional procedures. Approach-related complications including dysphonia, dysphagia, blindness, permanent vocal cord and neural injury, hematoma, swallowing and breathing difficulty; medical complications including liver, kidney, shock, and cardiopulmonary failure; anesthesia complications including , swelling, damage to the musculature, larynx , esophagus, trachea, blood vessels and muscles and lungs during this surgical procedure. Injury to deeper structures may be temporary or permanent. The patient understood these and elected to proceed. A written and verbal consent was given. We discussed the pros and cons of all the alternatives. We discussed the uncertainties associated with the decision. Afterwards I assessed the patients understanding and explored their preferences. All questions were answered and no guarantees were given. Medical clearance was obtained prior to surgery. INTRAOPERATIVE FINDINGS: The disc was collapsed and damaged with fissures and tears of the posterior longitudinal ligament through which herniated materials were encroaching on the neural elements. DESCRIPTION OF PROCEDURE: Under the benefit of general endotracheal anesthesia and with the assistance of the entire operative team, the patient was moved from the rney onto the operative table in the supine position on a radiolucent frame. The head was secured and positioned appropriately. Bilateral arms were secured with Gel Pads and foam and all bony prominences were padded. The bilateral lower extremity SCD and YING hose were placed for DVT prophylaxis. A surgical timeout was called which corroborated our planned procedure. Preoperative antibiotics were administered within 30 minutes of the incision for prophylaxis. Using lateral radiography, the operative levels were delineated. An incision was marked based on our interpretation of lateral radiography and afterwards the body was prepped and draped in the usual sterile manner. The family was notified that we were ready to commence surgery and were called in the waiting room hourly for updates. An incision was based on our lateral fluoroscopic image to center the incision at the L5-S1 interspace. The wound was prepped and draped in the usual sterile fashion. Using a scalpel, a standard retroperitoneal exposure was performed by our vascular surgeon Dr. Chito Amador and this is delineated in a separate operative note. After appropriate exposure at the L5-S1 disc space, we next turned our attention towards our radical discectomy. This was performed in standard fashion first beginning with a gentle mobilization of all superficial soft tissue overlying the disc space with Kittners. After this was performed, we marked our midline and confirmed our disc space on AP and lateral fluoroscopy. Next, using a 10 blade long-handled scalpel, the disc was resected from the endplates in a box discectomy technique. Next, using Sheldon elevators, the disc was mobilized off each endplate. After this, using a large Leksell rongeurs, the entire disc was removed from the intervertebral space. All residual disc and cartilaginous endplates were resected using a combination of small and medium curettage, pituitaries, size 4 and size 6 Kerrison rongeurs. Next, the endplates were distracted in a parallel fashion using the Mike fine hairer and a 7.5 Thandle. At this point, the PLL was resected using a small curette and a Kerrison 4 rongeur. Next, the endplates were resected down to bleeding subchondral bone using a ring and box curette. For any residual bleeding which we encountered at this point, this was maintained and controlled with a combination of FloSeal, Gelfoam, and bipolar cautery. Afterwards, Tisseel was used to seal the discectomy site dorsally. Next I then trialed the interspace for height, width, and depth. This was confirmed on fluoroscopy and once satisfied with our fit, we loaded and inserted a NuVasive Brigade PEEK cage size #14 mm 8-degree with bone morphogenetic protein and with Mariposa allograft bone under AP and lateral fluoroscopy. AP and lateral fluoroscopy confirmed excellent placement at the L5-S1 interspace. Afterwards, we turned our attention towards plating from the Nuvasive Brigade Interlock system. This anterior lumbar plating and fixation at L5-S1 using #4 screws of 25 mm length. Final radiographs confirmed appropriate placement of all hardware, screws, and our PEEK cage along with a buddhism of the lumbar lordosis. Afterwards, Tisseel was used to seal the discectomy site ventrally. FloSeal and Zosyn antibiotics were placed directly on the anterior fusion site. The wounds were copiously irrigated with antibiotic-impregnated saline. Afterwards, FloSeal was placed to address residual bleeding. Powdered antibiotics were directly poured into the wound to provide for direct antibiosis. Next, I turned my attention to closure. Fascial closure was performed with 1-0 Vicryl suture. Subcutaneous tissues were reapproximated with 2-0 Vicryl. The superficial subcutaneous skin was closed with a running Monocryl and Dermabond. Dressings consisted of Tegaderm and 4 x 4 gauze. The patient tolerated the procedure well and after discussion with our vascular surgeon and our anesthesiologist, we made the determination to proceed with stage 2 of 2 our posterior based approach. The details of stage 1 of the surgery were related to the patients family/representatives upon the conclusion of the procedure in the family waiting room. Stage 2 of 2. DATE OF OPERATION: 05/15/2018 SURGEON: Daniel Hoyt M.D., Orthopaedic Spine Surgeon. INTERNAL COMMUNICATIONS WRITER SURGEON: Aguilar Gaviria M.D. ANESTHESIA: General endotracheal anesthesia. PREOPERATIVE DIAGNOSES: 1. Intractable back pain. 2. Intractable leg pain. 3. Worsening radiculopathy. 4. Weakness. 5. Herniated nucleus pulposus, L5-S1 herniation. 6. Neural foraminal stenosis, L5-S1. POSTOPERATIVE DIAGNOSES: 1. Intractable back pain. 2. Intractable leg pain. 3. Worsening radiculopathy. 4. Weakness. 5. Herniated nucleus pulposus, L5-S1 herniation. 6. Neural foraminal stenosis, L5-S1. PROCEDURES PERFORMED: 1. Both left-sided and right-sided Ofng laminectomy/England-Bartholomew osteotomy, and complete facetectomy at L5-S1. 2. Left-sided L4-L5 microdiscectomy. 3. L5-S1 posterolateral fusion using allograft bone, local autograft, and residual bone morphogenetic protein. 4. Percutaneous pedicle screw fixation at L5-S1 using Synthes #4 screws of 40 mm length of 6 mm diameter. 5. Confirmation of pedicle screws placement using neural monitoring. 6. Use of intraoperative microscope. 7. Supervision and interpretation of intraoperative fluoroscopy. 8. Supervision and interpretation of somatosensory-evoked potential and free-running EMG monitoring. ESTIMATED BLOOD LOSS: mL. COMPLICATIONS: None. INDICATIONS FOR THE PROCEDURE: The patient is a 43-year-old male who presents for Stage 2 in regard to his intractable back pain and radiculopathy. This operative note details the second stage of our surgery. Prior to surgery, we had a long discussion with Shahriar regarding definitive surgical treatment options. We had a long discussion with the patient regarding the risks, alternatives, and benefits of procedure. Our description of the risks included a discussion in person as well as a signed consent which detailed all pertinent risks and the procedure itself. Briefly, our discussion included but was not limited to infection, bleeding, pseudarthrosis, spinal cord injury, neurovascular injury, dural tear, CSF leak, neuropathy, paralysis, permanent weakness/drop foot, paresthesias, blindness, palsy, and weakness. The patient understood there may be a need for revision surgery or additional procedures. Approach-related complications including dysphonia, dysphagia, blindness, permanent vocal cord and neural injury, hematoma, swallowing and breathing difficulty; medical complications including liver, kidney, shock, and cardiopulmonary failure; anesthesia complications including , swelling, damage to the musculature, larynx, esophagus, trachea, blood vessels and muscles and lungs during this surgical procedure. Injury to deeper structures may be temporary or permanent. The patient understood these and elected to proceed. A written and verbal consent was given. We discussed the pros and cons of all the alternatives. We discussed the uncertainties associated with the decision. Afterwards I assessed the patients understanding and explored their preferences. All questions were answered and no guarantees were given. This now delineates the second stage of the procedure. INTRAOPERATIVE FINDINGS: L4-L5, there was a tear in the central to lateral aspects of the posterior longitudinal ligament. Through this, there was herniated tissue encroaching on the thecal sac and neural elements applying pressure on the L4-L5 neural elements and the exiting L5 nerve root. At L5-S1 posteriorly, there was neural foraminal stenosis and impingement on the neural elements, which was decompressed directly by our anterior cage and afterwards decompressed by removal of the facet joints posteriorly. DESCRIPTION OF PROCEDURE: Under the benefit of general endotracheal anesthesia and with the assistance of the entire operative team, the patient was moved from the radiolucent operative table in the prone position onto a Conner frame. The head was secured and positioned appropriately. Bilateral arms were secured with Gel Pads and foam and all bony prominences were padded. The bilateral lower extremity SCD and YING hose were placed for DVT prophylaxis. A surgical timeout was called which corroborated our planned procedure. Preoperative antibiotics were administered within 30 minutes of the incision for prophylaxis. Using lateral radiography, the operative levels were delineated. An incision was marked based on our interpretation of anterior, posterior, and lateral radiography and afterwards the body was prepped and draped in the usual sterile manner. The family was notified that we were ready to commence surgery and were called in the waiting room hourly for updates. An incision was based on our anterior, posterior, and lateral fluoroscopic image to center the incision at the L5-S1 interspace. The wound was prepped and draped in the usual sterile fashion. Using a scalpel, a midline incision was made and the subcutaneous tissue was mobilized so that within the fascia, two [place] based incisions were made, one incision on both the left and right sides focusing on his pedicle at L5-S1 through a percutaneous stab wound approach. All pedicles were cannulated in the exact same fashion for each level. This was performed in the following manner. The second incision was made slightly off midline and geared towards his L5-S1 interspace approached. Using Jamshidi needles under direct AP and lateral fluoroscopic visualization, I approached the L5-S1 pedicles with Jamshidi needles making sure to leave clearance along the medial pedicle boundary/wall, and next we advanced our bilateral pedicle screw entry points under AP and lateral fluoroscopy at both our pedicles bilaterally. Next, percutaneous screws were loaded on both the sides. Screws were inserted in percutaneous fashion and afterwards these screws were stimulated. Next, a na was lordosed and placed percutaneously through the incision. Next, we turned our attention to our England-Bartholomew type osteotomy, facetectomy, and decompression. This was performed at each level in the exact same fashion. Based on AP and lateral fluoroscopy, we centered this incision over the facet joints at L5-S1 of the contralateral side. This was taken down through the skin and subcutaneous tissues until the overlying pars facet joints of L5-S1 were visualized under microscopic visualization. There was severe pressure on this neural foramina as palpated with the [place] dental and a Franks ball probe. The pars was then visualized on the contralateral side and this was carefully resected along with the lamina and superior articular process using a Auramist Lokesh AM8 drill bit. This was completely resected using a England-Abrtholomew type osteotomy and medial laminar removal and facetectomy. There was a significant amount of bleeding, which we encountered at this point and this was maintained and controlled with a combination of FloSeal, Gelfoam, and bipolar cautery. After complete resection of the facet joints, we noticed the lateral thecal sac margin and the neural elements . Next, I turned my attention to the stimulation of pedicle screws. All pedicle screws were stimulated with somatosensory-evoked potentials ranging over 20 milliampere with no response. Afterwards percutaneous rods from the Synthes pedicle screw system were inserted and placed percutaneously and locking caps were placed. Final radiographs confirmed appropriate placement of all hardware, screws, and our PEEK cages along with a buddhism of the lumbar lordosis. The wounds were copiously irrigated with antibiotic-impregnated saline. Afterwards, FloSeal was placed to address residual bleeding. Powdered antibiotics were directly poured into the wound to provide for direct antibiosis. Next, I turned my attention to closure. Fascial closure was performed with 1-0 Vicryl suture. Subcutaneous tissues were reapproximated with 2-0 Vicryl. The superficial subcutaneous skin was closed with a running Monocryl and Dermabond. Dressings consisted of Tegaderm and 4 x 4 gauze. The patient tolerated the procedure well and will now be admitted to the spine floor for further observation. The details of the entire surgery were related to the patients family/representatives upon the conclusion of the procedure in the family waiting room. Daniel Hoyt M.D. DR: Shantelle JOB#: [id number] CC:
[2018-05-16] VITALS: BP 101/54
[2018-05-16] MEDS: ceFAZolin sod 1 GM in D5W 55 ML IV SCH ×3 (00:46→15:26)
[2018-05-16] MEDS: Dexamethasone 4mg/ml vial IVP SCH ×3 (03:52→15:25)
[2018-05-16 04:00] VITALS: BP 121/81
[2018-05-16] MEDS: NS w/KCl 20mEq 1,000 ML IV SCH ×2 (06:59→17:22)
[2018-05-16] MEDS: Morphine Sulfate 4mg/ml Inj (IV/IM USE ONLY) IV PRN (07:41)
[2018-05-16 08:00] VITALS: BP 118/68
[2018-05-16] MEDS: Docusate 100mg cap ORAL SCH ×2 (08:23→17:22)
--- NOTE | 2018-05-16 10:07 | 48 Hour Post Anesthesia Eval ---
Post Anesthesia Evaluation Procedure: Anterior and posterior L5-S1 interbody fusion with laminotomy and decompres Date of Evaluation: May 16, 2018 Time of Evaluation: 07:00 Blood Pressure Systolic: 121 0: 81 Pulse Rate: 96 Respiratory Rate: 18 Temperature (Fahrenheit): 97.3 O2 Sat by Pulse Oximetry: 97 Airway: patent Nausea: No Vomiting: No Pain Intensity: 2 Hydration Status: adequate Cardiopulmonary Status: at baseline Mental Status/LOC: patient returned to baseline Post-Anesthesia Complications: 0 Follow-up care needed: N/A - further care as per primary team Henna Najera MD May 16, 2018 10:07
--- NOTE | 2018-05-16 11:30 | General Progress Note ---
Assessment/Plan Assessment/Plan 1. Intractable back pain. 2. Intractable leg pain. 3. Worsening radiculopathy. 4. Weakness. 5. Herniated nucleus pulposus, L5-S1 herniation. 6. Neural foraminal stenosis, L5-S1 herniation. 7. Radical anterior lumbar intervertebral L5-S1 discectomy PLAN 1. incentive spirometry 2. SCD 3. PT evaluation and therapy 4. Hydration 5. Pain management 6. discharge once stable with outpatient follow up. Subjective Allergies: Coded Allergies: NO KNOWN ALLERGIES (Verified Allergy, Unknown, 05/15/18) Subjective asked to follow up postop Objective Last 24 Hour Vital Signs Date Time Temp Pulse Resp B/P (MAP) Pulse Ox O2 Delivery O2 Flow Rate FiO2 05/16/18 10:07 96 18 97 05/16/18 08:01 Room Air 05/16/18 08:00 98.4 102 20 118/68 (85) 96 05/16/18 04:00 97.3 96 18 121/81 (94) 97 05/16/18 00:00 97.9 80 19 101/54 (70) 98 05/15/18 21:00 Nasal Cannula 3.0 05/15/18 20:00 97.4 81 17 125/78 (94) 98 05/15/18 18:43 98.3 89 16 122/72 (89) 98 05/15/18 18:20 Nasal Cannula 3.0 05/15/18 18:20 98.7 05/15/18 18:07 98.7 92 14 120/74 100 Nasal Cannula 3 05/15/18 18:00 94 14 124/75 100 Nasal Cannula 3 05/15/18 17:55 86 17 108/73 100 Nasal Cannula 3 05/15/18 17:40 81 14 114/65 100 Simple Mask 6 05/15/18 17:30 82 15 108/67 100 Simple Mask 6 05/15/18 17:23 86 16 107/69 100 Simple Mask 6 05/15/18 17:21 78 20 99 05/15/18 17:18 87 15 106/66 100 Simple Mask 6 05/15/18 17:13 98.6 85 23 108/71 100 Simple Mask 6 Intake and Output 05/15/18 05/16/18 18:59 06:59 Intake Total 2000 ml 1215 ml Output Total 550 ml 1400 ml Balance 1450 ml -185 ml Intake Oral 360 ml IV Total 2000 ml 855 ml Output Urine Total 350 ml 1400 ml Estimated Blood Loss 200 ml # Voids 1 1 Height (Feet): 5 Height (Inches): 10.00 Weight (Pounds): 193 Objective WDWN NAD clear breath sounds bilaterally without rhonchi or wheeze [id number] without MRG NABS nontender no HSM no CCE nonfocal Darrell Nelson MD May 16, 2018 11:30
[2018-05-16 11:37] VITALS: BP 113/75
[2018-05-16] MEDS: HYDROcodone/Acetamin 7.5/325 tab ORAL PRN ×3 (11:44→21:49)
[2018-05-16 15:54] VITALS: BP 117/81
[2018-05-16 20:00] VITALS: BP 128/65
[2018-05-17] VITALS: BP 114/62
[2018-05-17] MEDS: NS w/KCl 20mEq 1,000 ML IV SCH (01:19)
[2018-05-17 04:00] VITALS: BP 121/68
[2018-05-17] MEDS: HYDROcodone/Acetamin 7.5/325 tab ORAL PRN ×2 (06:47→10:37)
[2018-05-17 08:00] VITALS: BP 103/61
[2018-05-17] MEDS: Docusate 100mg cap ORAL SCH (08:37)
--- NOTE | 2018-05-17 09:23 | General Progress Note ---
Assessment/Plan Assessment/Plan 1. Intractable back pain. 2. Intractable leg pain. 3. Worsening radiculopathy. 4. Weakness. 5. Herniated nucleus pulposus, L5-S1 herniation. 6. Neural foraminal stenosis, L5-S1 herniation. 7. Radical anterior lumbar intervertebral L5-S1 discectomy PLAN 1. incentive spirometry 2. SCD 3. PT evaluation and therapy 4. Hydration 5. Pain management 6. discharge today; patient has prescriptions. Subjective Allergies: Coded Allergies: NO KNOWN ALLERGIES (Verified Allergy, Unknown, 05/15/18) Subjective asked to follow up postop Objective Last 24 Hour Vital Signs Date Time Temp Pulse Resp B/P (MAP) Pulse Ox O2 Delivery O2 Flow Rate FiO2 05/17/18 08:00 98.4 103 19 103/61 (75) 97 05/17/18 04:00 99.3 95 20 121/68 (85) 98 05/17/18 00:00 98.8 85 20 114/62 (79) 94 05/16/18 21:00 Room Air 05/16/18 20:00 99.6 89 20 128/65 (86) 94 05/16/18 15:54 98.4 94 20 117/81 (93) 98 05/16/18 11:37 99.2 95 20 113/75 (88) 98 05/16/18 10:07 96 18 97 Intake and Output 05/16/18 05/17/18 18:59 06:59 Intake Total 1815 ml 1100 ml Output Total 250 ml Balance 1565 ml 1100 ml Intake Oral 685 ml IV Total 1130 ml 1100 ml Output Urine Total 250 ml # Voids 4 2 # Bowel Movements 1 Height (Feet): 5 Height (Inches): 10.00 Weight (Pounds): 193 Objective WDWN NAD clear breath sounds bilaterally without rhonchi or wheeze [id number] without MRG NABS nontender no HSM no CCE nonfocal Darrell Nelson MD May 17, 2018 09:23
[2018-05-17] MEDS ORDERED: NORCO 10-325 T1 EACH ORAL (09:57)
[2018-05-17] MEDS ORDERED: SOMA250 MG PO (09:58)
--- NOTE | 2018-05-18 09:07 | Discharge Summary ---
Discharge Summary Discharge Summary _ DATE OF ADMISSION: 05/15/2018 DATE OF DISCHARGE: 05/17/2018 CO-SURGEON: Dr. Aguilar Gaviria, assistant infant toddler teacher surgeon Dr. Chito Amador, vascular surgeon CONSULTANTS: Dr. Darrell Nelson [facility] COURSE: Patient is a 43-year-old male, who presented with intractable back pain and radiculopathy. Patient was admitted and underwent anterior lumbar interbody fusion on L5-S1 and left-sided microdiscectomy of L4-L5, and L5-S1 posterolateral fusion. Surgery was performed with Dr. Gaviria, assistant infant toddler teacher surgeon and Dr. Amador, vascular surgeon. He tolerated procedure well. Surgery was uneventful. Post-operatively, patient was admitted for post-op care. He was placed on SCDs for DVT prophylaxis and was encouraged use of incentive spirometer. Patient was given pain management. Diet was advanced. Incision was clean, dry and intact. Patient was ambulating well with good pain control and tolerating diet. Patient was eventually cleared for discharge home. PREOPERATIVE DIAGNOSES: 1. Intractable back pain. 2. Intractable leg pain. 3. Worsening radiculopathy. 4. Weakness. 5. Herniated nucleus pulposus, L5-S1 herniation. 6. Neural foraminal stenosis, L5-S1 herniation. POSTOPERATIVE DIAGNOSES: 1. Intractable back pain. 2. Intractable leg pain. 3. Worsening radiculopathy. 4. Weakness. 5. Herniated nucleus pulposus, L5-S1 herniation. 6. Neural foraminal stenosis, L5-S1 herniation. PROCEDURES PERFORMED: (Stage 1) 1. Radical anterior lumbar intervertebral L5-S1 discectomy. 2. Anterior lumbar interbody fusion using [employer] PEEK cage size #14 mm 8-degree and bone morphogenetic protein with Kya allograft bone. 3. Anterior lumbar plating and fixation at L5-S1 using #4 screws of 25 mm length each. 4. Anterior retroperitoneal exposure. 5. Supervision and interpretation of intraoperative fluoroscopy. 6. Supervision and interpretation of somatosensory-evoked potential and free running EMG monitoring. PROCEDURES PERFORMED: (Stage 2) 1. Both left-sided and right-sided Fong laminectomy/[place]-Bartholomew osteotomy, and complete facetectomy at L5-S1. 2. Left-sided L4-L5 microdiscectomy. 3. L5-S1 posterolateral fusion using allograft bone, local autograft, and residual bone morphogenetic protein. 4. Percutaneous pedicle screw fixation at L5-S1 using Synthes #4 screws of 40 mm length of 6 mm diameter. 5. Confirmation of pedicle screws placement using neural monitoring. 6. Use of intraoperative microscope. 7. Supervision and interpretation of intraoperative fluoroscopy. 8. Supervision and interpretation of somatosensory-evoked potential and free-running EMG monitoring. DISPOSITION: Patient was discharged home. DISCHARGE MEDICATIONS: Refer to Discharge Medication List. DISCHARGE INSTRUCTIONS: Follow-up in 1-2 weeks. I have been assigned to dictate discharge summary on this account, and I was not involved in the patient's management. Analy Stephens NP May 18, 2018 09:07
== END 2018-05-17 11:16 | disposition home or self-care (01) | DRG 455 ==
LOC: SDSOVERFLO 07:04 → 3E 18:34
PROC: 0ST40ZZ Resection of Lumbosacral Disc, Open Approach (ICD-10-PCS; principal; 2018-05-15 09:30)
PROC: 3E0U0GB Introduction of Recombinant Bone Morphogenetic Protein into Joints, Open Approach (ICD-10-PCS; principal; 2018-05-15 09:30)
PROC: 0SG3071 Fusion of Lumbosacral Joint with Autologous Tissue Substitute, Posterior Approach, Posterior Column, Open Approach (ICD-10-PCS; principal; 2018-05-15 09:30)
PROC: 0SG30A0 Fusion of Lumbosacral Joint with Interbody Fusion Device, Anterior Approach, Anterior Column, Open Approach (ICD-10-PCS; principal; 2018-05-15 09:30)
PROC: 01NB0ZZ Release Lumbar Nerve, Open Approach (ICD-10-PCS; principal; 2018-05-15 09:30)
DX: M51.17 Intervertebral disc disorders with radiculopathy, lumbosacral region (principal); M48.07 Spinal stenosis, lumbosacral region; M25.562 Pain in left knee; M79.604 Pain in right leg; M25.519 Pain in unspecified shoulder; V19.9XXS Pedal cyclist (driver) (passenger) injured in unspecified traffic accident, sequela
CPT/HCPCS: 36415; 86850; 86900; 86901; 87081; 94003; 94150; J2250; J2710